=== PATIENT | female | born 1945 | race Caucasian/White ===

== ENCOUNTER 2021-11-05 19:34 | Emergency (ER) | payer MEDICARE, SELFPAY ==
[2021-11-05 19:35] VITALS: PULSE 67; RESP 18; TEMP 36.6; O2SAT 96; BMI 25.3
--- NOTE | 2021-11-05 19:57 | EX.ED.GENINJ ---
HPI History of Present Illness Chief Complaint: Fall Informant: patient Narrative Narrative: Patient complains of left ankle pain. Patient had what sounds like a trimalleolar or bimalleolar fracture and had it repaired at [facility] 6 days ago. She is in rehab facility now. She was transferring from her wheelchair to go to the bathroom. She somehow lost footing and she ended up hitting her left foot. It sounds like she did not land on it or twisted but more hit it on the top. There is some discomfort on the top. There is no deformity. She had taken pain meds right before this so she is really not hurting now. She just wants to make sure there is nothing that is moved or changed. She states she landed on her knees but they do not hurt. Nothing else hurts. She never hit her head. [facility] Medical History Car esophagus HTN (hypertension) Hyperlipidemia Hypothyroid Major depressive disorder Neuropathy Trimalleolar fracture Social History Smoking Status: Never smoker ROS ROS ED Constitutional Constitutional ED: Denies chills or fever(s) Cardiovascular Cardiovascular: Denies chest pain or palpitations Gastrointestinal Gastrointestinal: Denies nausea or vomiting Musculoskeletal Musculoskeletal: Reports arthralgias and other Details: See history of present illness Integumentary Denies rash Neurologic Neurologic: Denies headache(s) Hematologic/Lymphatic Hematologic/Lymphatic: Denies easy bleeding or easy bruising Allergic/Immunologic Allergic/Immunologic ED: Denies urticaria EXAM Physical Exam Const Vital Signs: 11/05/21 19:35 11/05/21 19:41 Temperature 97.8 F Temperature Source Temporal Pulse Rate 67 Respiratory Rate 18 Respiratory Effort Normal Respiratory Depth Normal Respiratory Pattern Normal Pulse Ox 96 Oxygen Delivery Method Room Air Room Air Positive well nourished and well developed General Appearance ED: well developed and NAD HEENT atraumatic Resp normal respiratory effort Cardio Rate: regular rate Back/Spine normal to inspection General Back: Negative for CVA tenderness Thoracic Spine / Upper Back: Negative for thoracic spinal tenderness Extremity Extremity Narrative: There is mild swelling around the left ankle. However, she states that is unchanged from surgery 6 days ago. There is minimal erythema around the incision on the lateral aspect of the ankle. However this was marked with a pen and is not moving outside of this and is actually less than many areas. There is no drainage. It is not warm. No deformity noted. Neuro oriented x3 Sensorium / Orientation: alert Skin No no wounds Skin Narrative: See above MDM MDM MDM Narrative Medical decision making narrative: Three-view x-ray of the left ankle looked at by me shows signs of recent surgery. Looks like she had lateral malleolar/fibular fracture that was repaired. This looks to be in good position. I do not see any broken components or screws. Mortise looks intact. I think patient can go back and continue rehab. Discharge Plan Triage Chief Complaint: Fall ED Provider: Jan Ayala Dx/Rx/DC Orders Clinical Impression: Fall at skilled nursing, Contusion of ankle, left, History of ankle surgery Instructions: Ankle Fracture ORIF Primary Care Provider: Anthony Cast Activity Restrictions/Additional Instructions: Follow-up with your orthopedic surgeon as scheduled. Disposition Disposition: Intermediate Facility
--- NOTE | 2021-11-05 20:00 | RAD_ITS ---
EXAM: XR LEFT ANKLE COMPLETE, 3 OR MORE VIEWS CLINICAL INDICATION: trauma PT HAD LEFT ANKLE SURGERY AT [facility] LAST WEDNESDAY. WAS TRANSFERRING TO WHEELCHAIR FELL ON LEG. COMPLAINING OF LEFT ANKLE PAIN. TECHNIQUE: Frontal, lateral and oblique views of the left ankle. This report was created using [employer] report generation technology. COMPARISON: None. FINDINGS: BONES/JOINTS: Small calcification visualized overlying the region of the medial malleolus. Avulsive fracture is in the differential. There is a metal sideplate transfixing the distal fibula. There are cortical screws holding the plate in place. Preservation of the joint space. No sclerotic or destructive changes observed. SOFT TISSUES: Soft tissue swelling around the ankle. No radiopaque foreign body. RAD/Ankle min 3 Views IMPRESSION: 1. Soft tissue swelling around the ankle. 2. Small calcification visualized overlying the region of the medial malleolus. Avulsive fracture is in the differential. Electronically Signed: Stepan Ramos MD at 20:34 EDT ,
[2021-11-05 20:16] VITALS: BP 123/78; PULSE 78; RESP 16; O2SAT 98
== END 2021-11-05 23:04 ==
PROVIDERS: Emergency Provider Emergency Medicine; PCP Family Medicine; Visit Provider Emergency Medicine
DX: S90.02XA Contusion of left ankle, initial encounter (principal); W01.10XA Fall on same level from slipping, tripping and stumbling with subsequent striking against unspecified object, initial encounter; Y92.129 Unspecified place in nursing home as the place of occurrence of the external cause; Y93.89 Activity, other specified; Y99.8 Other external cause status
CPT/HCPCS: 73610; 99284